=== PATIENT | female | born 1940 | race Caucasian/White ===

== ENCOUNTER 2019-02-22 13:11 | Emergency (ER) | payer MEDICARE, OTHER ==
[~2019-02-22] VITALS: Ht 160 cm; Wt 44.5 kg
--- NOTE | 2019-02-22 14:35 | NUR ---
PT WAS EVALUATED BY DR WARD. PT IS IN ROOM #2B.
[2019-02-22] MEDS ORDERED: TDAP DIPH,PERTUSS,TET VAC/PF 0.5 ML DISP.SYRIN IM ONE (14:37)
[2019-02-22] MEDS: TDAP DIPH,PERTUSS,TET VAC/PF 0.5 ML DISP.SYRIN IM ONE (14:41)
--- NOTE | 2019-02-22 15:08 | NUR ---
PT WAS EVALUATED BY DR WARD. PT WAS D/C'D TO HOME. D/C INSTRUCTIONS GIVEN TO THE PT. DRESSING IS INTACT. NO BLEEDING.
[2019-02-22 15:11] VITALS: BP 129/77
== END 2019-02-22 15:14 | disposition home or self-care (01) ==
LOC: ER 13:11
DX: S61.511A Laceration without foreign body of right wrist, initial encounter (principal); S81.011A Laceration without foreign body, right knee, initial encounter; S50.02XA Contusion of left elbow, initial encounter; S50.01XA Contusion of right elbow, initial encounter; W01.0XXA Fall on same level from slipping, tripping and stumbling without subsequent striking against object, initial encounter; Y93.89 Activity, other specified; Y92.89 Other specified places as the place of occurrence of the external cause; Y99.8 Other external cause status
CPT/HCPCS: 90715; A4217; A4663

== ENCOUNTER 2019-02-24 10:21 | Emergency (ER) | payer MEDICARE, OTHER ==
[~2019-02-24] VITALS: Ht 160 cm; Wt 43.1 kg
--- NOTE | 2019-02-24 10:50 | NUR ---
received pt 78yr femal awake and alert s/p fall down 2 days ago for wound check with ken wound tear with dresing and intact and dry no draning on site dry dr hewitt at bed side examine pt wound on rt hand and rt elbow and rt knee
--- NOTE | 2019-02-24 11:32 | NUR ---
change dressing done by by Erin greenberg and dressing appled keep day and clean
--- NOTE | 2019-02-24 11:54 | NUR ---
Patient discharged to home in stable conditon. Written and verbal after care instructions given. Patient verbalizes understanding of instructions.
== END 2019-02-24 11:56 | disposition home or self-care (01) ==
LOC: ER 10:22
DX: S51.011D Laceration without foreign body of right elbow, subsequent encounter (principal); S61.512D Laceration without foreign body of left wrist, subsequent encounter; S61.511D Laceration without foreign body of right wrist, subsequent encounter; S81.011D Laceration without foreign body, right knee, subsequent encounter; W01.0XXD Fall on same level from slipping, tripping and stumbling without subsequent striking against object, subsequent encounter
CPT/HCPCS: A4663

== ENCOUNTER 2019-02-26 18:30 | Emergency (ER) | payer MEDICARE, OTHER ==
[~2019-02-26] VITALS: Ht 160 cm; Wt 44.5 kg
--- NOTE | 2019-02-26 18:53 | NUR ---
PT IS IN ROOM #2A. DR FELIX EVALUATED THE PT.
[2019-02-26] MEDS ORDERED: NEOMY/BACITRA/POLYMYXIN B OINT UD PACKET TP ONE ×2 (19:15→19:19)
[2019-02-26] MEDS ORDERED: SULFAMETH/TRIMETH 800/160 MG TABLET PO ONE (19:15)
[2019-02-26] MEDS ORDERED: SULFAMETH/TRIMETH 800/160 MG TABLET ONE (19:21)
--- NOTE | 2019-02-26 19:32 | NUR ---
PATIENT ALERT RESPONSIVE DAUGHTER AT THE BEDSIDE WITH PATIENT, DRESSING REMOVED FROM SITE ANDMD WANTS TO WATCH SITES FOR PRESENT REDDNESS AND SWELLING.
--- NOTE | 2019-02-26 19:35 | NUR ---
RIGHT ARM ELEVATED ON PILLOWS.
--- NOTE | 2019-02-26 20:27 | NUR ---
PATIENT WOUNDS CLEANSED AND REDRESSED. TOLERATED WELL. D/C HOME WITH F/U WOUND CARE INSTRUCTIONS DISSCUSSED WITH MD ,PATIENT AND HER DAUGHTER VERBALIZES UNDERSTANDING.
[2019-02-26 20:32] VITALS: BP 127/69
== END 2019-02-26 20:39 | disposition home or self-care (01) ==
LOC: ER 18:31
DX: S51.011D Laceration without foreign body of right elbow, subsequent encounter (principal); S81.011D Laceration without foreign body, right knee, subsequent encounter; W01.0XXD Fall on same level from slipping, tripping and stumbling without subsequent striking against object, subsequent encounter
CPT/HCPCS: A4663

== ENCOUNTER 2019-03-08 16:15 | Inpatient (IN) | payer MEDICARE, OTHER ==
[~2019-03-08] VITALS: Ht 160 cm; Wt 46.9 kg
--- NOTE | 2019-03-08 16:27 | NUR ---
Dr Light at the bedside for MSE.
[2019-03-08] MEDS ORDERED: SULF1TAB48 PO (16:32)
[2019-03-08] MEDS ORDERED: PRAV20TA4 PO (16:35)
[2019-03-08] MEDS ORDERED: TORS20TA3 PO (16:35)
[2019-03-08] MEDS ORDERED: LOSA25TA27 PO (16:35)
[2019-03-08] MEDS ORDERED: diphenhydrAMINE 50 MG/1 ML VIAL IV ONE (16:45)
[2019-03-08] MEDS ORDERED: FAMOTIDINE. 20 MG/2 ML VIAL IV ONE ×2 (16:45→16:49)
[2019-03-08] MEDS ORDERED: methylPREDNISolone SOD SUCC 125 MG/2 ML VIAL IV ONE (16:45)
[2019-03-08] MEDS ORDERED: IV NORMAL SALINE 1000 ML BAG IV ONE (16:45)
[2019-03-08] MEDS ORDERED: diphenhydrAMINE 50 MG/1 ML VIAL ONE (16:49)
[2019-03-08] MEDS ORDERED: methylPREDNISolone SOD SUCC 125 MG/2 ML VIAL ONE (16:49)
[2019-03-08 16:53] LABS: BASOPHILS % (AUTO) 0.2 % (0.0-2.0); EOSINOPHILS # (AUTO) 0.3 K/uL (0.0-0.7); HEMOGLOBIN 9.9 g/dL (10.9-14.3); LYMPHOCYTES # (AUTO) 0.3 K/uL (20.0-40.0); LYMPHOCYTES % (AUTO) 3.4 % (20.5-51.5); MEAN CORPUSCULAR HEMOGLOBIN 32.8 uug (24.7-32.8); MEAN CORPUSCULAR HGB CONC 34 g/dL (32.3-35.6); MEAN CORPUSCULAR VOLUME 96.3 fL (75.5-95.3); MONOCYTES # (AUTO) 0.5 K/uL (2.0-10.0); MONOCYTES % (AUTO) 5.5 % (0.0-11.0); NEUTROPHILS # (AUTO) 8.2 K/uL (1.8-8.9); NEUTROPHILS % (AUTO) 87.9 % (38.5-71.5); PLATELET COUNT (AUTO) 157 K/uL (179-408); RED BLOOD CELL COUNT(AUTO) 3.01 MIL/uL (3.63-4.92); WHITE BLOOD COUNT (AUTO) 9.3 K/uL (3.8-11.8)
[2019-03-08 17:04] LABS: CARBON DIOXIDE 21 mmol/L (21-32); CHLORIDE 100 mmol/L (98-107); CREATININE 1.8 mg/dL (0.6-1.3); GLUCOSE 93 mg/dL (74-106); POTASSIUM 4.5 mmol/L (3.5-5.1); UREA NITROGEN, BLOOD 33 mg/dL (7-18)
[2019-03-08 17:12] LABS: ALANINE AMINOTRANSFERASE 28 U/L (14-59); ALKALINE PHOSPHATASE 51 U/L (50-136); ASPARTATE AMINOTRANSFERASE 24 U/L (15-37); BILIRUBIN,DIRECT 0.1 mg/dL (0.0-0.2); BILIRUBIN,TOTAL 0.3 mg/dL (0.2-1.0); TOTAL PROTEIN, SERUM 6.8 g/dL (6.4-8.2)
--- NOTE | 2019-03-08 17:44 | NUR ---
No changes noted after meds regarding rash.
--- NOTE | 2019-03-08 17:54 | NUR ---
VICTORIANO ESCOTO speak w/ Rocio Barnes for TELE admit.
--- NOTE | 2019-03-08 17:59 | NUR ---
According to Pt belongings taken home by her daughter, and she will bring them back shortly.
[2019-03-08 18:45] VITALS: BP 113/55
[2019-03-08] MEDS ORDERED: Z GUARD REMEDY PASTE 57 GM TUBE TOP PRN (19:15)
[2019-03-08] MEDS ORDERED: MAGNESIUM HYDROXIDE 30 ML LIQUID UDC PO PRN (19:15)
[2019-03-08] MEDS ORDERED: LEVOFLOXACIN 500 MG/D5W 500 MG in PREMIXED 1 EACH IV SCH ×2 (19:15→20:00)
[2019-03-08] MEDS ORDERED: ONDANSETRON 4 MG/2 ML VIAL IV PRN (19:15)
[2019-03-08] MEDS ORDERED: diphenhydrAMINE 50 MG/1 ML VIAL IV PRN (19:15)
--- NOTE | 2019-03-08 19:30 | NUR ---
Received patient awake and alert with family at bedside. No distress noted. No complaints of pain or SOB. Rashes noted to entire body, no complaints of itchiness at this time. Patient is A/Ox4. IV on the left AC is intact and patent. Patient is ambulatory with assist. Safety measures initiated. Bed is low and locked, call light within reach. Patient oriented to room and unit. Will continue with admission process.
--- NOTE | 2019-03-08 19:49 | NUR ---
CLINICAL PHARMACY NOTE:VANCOMYCIN DOSING Request for vancomycin dosing on 78 y/o female 160.02cm 44.45kg for cellulitis Temp 98.5 BUN 33 Scr 1.8 WBC 9.3 also on Levaquin for pneumonia Give vancomycin 750mg ivpb x1 will dose by levels due to decrease renal function. Random vancomycin level ordered for tomorrow afternoon.
[2019-03-08 20:21] VITALS: BP 131/54
[2019-03-08] MEDS ORDERED: VANCOMYCIN IV 750 MG in IV DEXTROSE 5% 250 ML IV ONE (21:00)
[2019-03-08] MEDS: methylPREDNISolone SOD SUCC 40 MG/ML VIAL IV SCH (21:12)
[2019-03-09] MEDS: ACETAMINOPHEN 325 MG TABLET PO PRN ×2 (00:03→06:26)
[2019-03-09 01:20] VITALS: BP 101/42
[2019-03-09 01:41] LABS: *BILIRUBIN,URIN NEGATIVE (NEGATIVE); *BLOOD, URINE NEGATIVE (NEGATIVE); *CLARITY,URINE CLEAR (CLEAR); *COLOR,URINE YELLOW (YELLOW); *KETONES,URINE NEGATIVE (NEGATIVE); PH,URINE 5.5 (5.0-8.0); UGLUCOSE NEGATIVE (NEGATIVE)
[2019-03-09 01:42] LABS: *UROBILINOGEN,URINE 0.2 E.U./dl (NORMAL); LEUKOCYTE ESTERASE ,URINE NEGATIVE (NEGATIVE); NITRITE, URINE NEGATIVE (NEGATIVE)
[2019-03-09] MEDS ORDERED: hydrOXYzine HCL 10 MG TABLET PO PRN (02:30)
--- NOTE | 2019-03-09 03:10 | NUR ---
Patient complaining of itching, called on-call Ceasar March NP with new orders. Patient refusing TELE monitor at this time saying the adhesive is making her more itchy, notify Ceasar March NP. Will continue to monitor.
[2019-03-09] MEDS ORDERED: hydrOXYzine HCL 10 MG TABLET ONE (03:27)
[2019-03-09 04:43] VITALS: BP 116/54
[2019-03-09 06:09] LABS: BASOPHILS % (AUTO) 0.2 % (0.0-2.0); EOSINOPHILS % (AUTO) 0.6 % (0.0-7.0); HEMATOCRIT 27.2 % (31.2-41.9); HEMOGLOBIN 9.3 g/dL (10.9-14.3); LYMPHOCYTES # (AUTO) 0.4 K/uL (20.0-40.0); LYMPHOCYTES % (AUTO) 5.6 % (20.5-51.5); MEAN CORPUSCULAR HEMOGLOBIN 32.7 uug (24.7-32.8); MEAN CORPUSCULAR HGB CONC 34 g/dL (32.3-35.6); MONOCYTES # (AUTO) 0.2 K/uL (2.0-10.0); MONOCYTES % (AUTO) 2.4 % (0.0-11.0); NEUTROPHILS # (AUTO) 6.6 K/uL (1.8-8.9); NEUTROPHILS % (AUTO) 91.2 % (38.5-71.5); PLATELET COUNT (AUTO) 154 K/uL (179-408); RED BLOOD CELL COUNT(AUTO) 2.84 MIL/uL (3.63-4.92); WHITE BLOOD COUNT (AUTO) 7.2 K/uL (3.8-11.8)
--- NOTE | 2019-03-09 06:29 | NUR ---
Patient stated itching is getting a little better. Was seen by airport operations manager, scheduled for an Echo today. Still refusing to put TELE monitor, airport operations manager is aware. No complaints of pain or SOB. Safety measures given. Will endorse to next shift.
[2019-03-09 06:38] LABS: CARBON DIOXIDE 21 mmol/L (21-32); CHLORIDE 108 mmol/L (98-107); CHOLESTEROL 137 mg/dL (<200); CREATININE 1.4 mg/dL (0.6-1.3); GLUCOSE 151 mg/dL (74-106); HDL CHOLESTEROL 50 mg/dL (40-60); MAGNESIUM 2.2 mg/dL (1.8-2.4); PHOSPHOROUS 3.1 mg/dL (2.5-4.9); POTASSIUM 4.9 mmol/L (3.5-5.1); TRIGLYCERIDES 79 MG/DL (30-150); UREA NITROGEN, BLOOD 34 mg/dL (7-18)
[2019-03-09] MEDS ORDERED: PANTOPRAZOLE SODIUM 40 MG TABLET.DR PO SCH (07:00)
[2019-03-09 07:07] LABS: THYROID STIMULATING HORMONE 0.054 mIU/mL (0.358-3.740)
--- NOTE | 2019-03-09 07:30 | NUR ---
PATIENT IS AWAKE ALERT AND ORIENTED DENIES PAIN OR DISCOMFORTS AT THIS TIME MULTIPLE SCABS AND SKIN TEARS PATIENT STATED THAT SHE FELL IN HER HOUSE CAUSING THE SKIN TEARS AND SCABS. ABLE TO AMBULATE TO AND FROM THE BATHROOM WITH SBA.CALL LIGHTS AND PERSONAL BELONGINGS PLACED WITHIN EASY REACH WILL CONTINUE TO OBSERVE.
[2019-03-09] MEDS: methylPREDNISolone SOD SUCC 40 MG/ML VIAL IV SCH (08:50)
[2019-03-09] MEDS ORDERED: HYDR-3641 PO (08:54)
[2019-03-09] MEDS ORDERED: METH4TAB3 PO (08:54)
[2019-03-09] MEDS ORDERED: LORA-114 PO (08:54)
[2019-03-09] MEDS ORDERED: LOSARTAN POTASSIUM 25 MG TABLET PO SCH (09:00)
[2019-03-09] MEDS ORDERED: LORATADINE 10 MG TABLET PO SCH (09:00)
--- NOTE | 2019-03-09 10:00 | NUR ---
PATIENT SEEN AND EXAMINED BY MARJORIE JANE STATED THAT PATIENT WILL BE DISCHARGED HOME TODAY AFTER ECHO
[2019-03-09] MEDS ORDERED: CULTURELLE CAPSULE PO SCH (10:30)
[2019-03-09 11:19] VITALS: BP 108/51
--- NOTE | 2019-03-09 13:15 | NUR ---
ECHO COMPLETED AND PATIENT HAS 40-45 PERCENT EF CALLED AND NOTIFIED MARJORIE.
--- NOTE | 2019-03-09 13:30 | NUR ---
CALL RECEIVED FROM [facility] STATED THAT PATIENT HAS BEEN CLEARED BY THE DOCUMENT PREPARATION SPECIALIST TO GO HOME SHE NEEDS TO FOLLOW UP WITH HER DOCUMENT PREPARATION SPECIALIST AN OUT PATIENT FOR A REPEAT OF ECHO SO AWAITING FOR FINAL DISCHARGE ORDER AND SUMMARY.PATIENTS DAUGHTER IS AT THE BEDSIDE AND AWARE.
--- NOTE | 2019-03-09 13:55 | NUR ---
PATIENT REQUESTED FOR ME TO CALL IN HER MEDICATIONS WHILE WE ARE WAITING FOR MARJORIE TO PLACE A DISCHARGE ORDER SO WHEN I CALLED [facility] THEY STATED THAT THEY ARE CLOSING AT 1400 AND GAVE ME THE NUMBER OF THE [facility] SO I ASKED THE PATIENTS DAUGHTER AND SHE AGREED FOR ME TO CALL IN THE PRESCRIPTION TO THE [facility] ON [address].
--- NOTE | 2019-03-09 14:28 | NUR ---
PATIENT DISCHARGED PICKED UP BY HER DAUGHTER LUISA IN SATISFACTORY CONDITION WITH DISCHARGE INSTRUCTIONS, PRESCRIPTIONS AND ALL OF HER PERSONAL BELONGINGS AND ALSO WAS INSTRUCTED TO FOLLOW UP WITH HER RESTROOMS OR LOUNGES MAID FOR A REPEAT ECHO HER LEVEL IS LOW TODAY AND THEY EXPRESSED UNDERSTANDING.
[2019-03-10] MEDS ORDERED: LEVOFLOXACIN 250MG /D5W 250 MG in PREMIXED 1 EACH IV SCH (20:00)
== END 2019-03-09 14:28 | disposition home or self-care (01) | DRG 813 ==
LOC: ER 16:19 → TELE3 18:08
PROVIDERS: ADMIT Registered Nurse; ATTEND Registered Nurse
DX: D69.0 Allergic purpura (principal); N17.0 Acute kidney failure with tubular necrosis; I50.32 Chronic diastolic (congestive) heart failure; L27.0 Generalized skin eruption due to drugs and medicaments taken internally; T36.8X5A Adverse effect of other systemic antibiotics, initial encounter; Y92.019 Unspecified place in single-family (private) house as the place of occurrence of the external cause; I44.7 Left bundle-branch block, unspecified; Z85.3 Personal history of malignant neoplasm of breast; Z87.891 Personal history of nicotine dependence; L40.50 Arthropathic psoriasis, unspecified; Z92.3 Personal history of irradiation; S51.802D Unspecified open wound of left forearm, subsequent encounter; S51.801D Unspecified open wound of right forearm, subsequent encounter; S81.001D Unspecified open wound, right knee, subsequent encounter; W01.0XXD Fall on same level from slipping, tripping and stumbling without subsequent striking against object, subsequent encounter; Z88.2 Allergy status to sulfonamides; R60.0 Localized edema; I11.0 Hypertensive heart disease with heart failure; E86.0 Dehydration; D69.6 Thrombocytopenia, unspecified; I70.0 Atherosclerosis of aorta; E78.5 Hyperlipidemia, unspecified; M06.9 Rheumatoid arthritis, unspecified
CPT/HCPCS: 36415; 70030-TC; 71045; 83605; 83735; 84100; 84443; 85025; 85730; 93005; 93307; A4663; G0378; J1200; J1956; J2920; J2930; J3370; J3490; J7050; J7060

== ENCOUNTER 2022-09-13 16:02 | Emergency (ER) | payer MEDICARE, OTHER ==
[~2022-09-13] VITALS: Ht 160 cm; Wt 44.5 kg
[~2022-09-13 16:02] MED LIST: HYDR-3641 PO; LORA-114 PO; LOSA25TA27 PO; METH4TAB3 PO
--- NOTE | 2022-09-13 17:02 | NUR ---
Patient seen by physician.
[2022-09-13] MEDS ORDERED: TDAP DIPH,PERTUSS,TET VAC/PF 0.5 ML DISP.SYRIN IM ONE ×2 (17:15→17:22)
[2022-09-13] MEDS ORDERED: LIDOCAINE HCL 1% 20 ML VIAL TP ONE (17:15)
[2022-09-13] MEDS ORDERED: ACETAMINOPHEN ES 500 MG TABLET PO ONE (17:15)
[2022-09-13] MEDS ORDERED: ACETAMINOPHEN ES 500 MG TABLET ONE (17:21)
[2022-09-13] MEDS ORDERED: LIDOCAINE HCL 1% 20 ML VIAL ONE (17:21)
[2022-09-13] MEDS ORDERED: NEOMY/BACITRA/POLYMYXIN B OINT UD PACKET TP ONE ×2 (18:10→18:15)
--- NOTE | 2022-09-13 18:28 | NUR ---
DCD instructions given to pt. who verbalized understanding. pt. left room ambulatory steady gait and walk to the outside right front area where her car was parked.
--- NOTE | 2022-09-13 18:30 | NUR ---
Wound care per order, triple antibiotic ointment to suture line, covered with gauze 4x4 and Coban wrap.
== END 2022-09-13 18:32 | disposition home or self-care (01) ==
LOC: ER 16:04
DX: S81.011A Laceration without foreign body, right knee, initial encounter (principal); I50.9 Heart failure, unspecified; E78.5 Hyperlipidemia, unspecified; Z88.2 Allergy status to sulfonamides; Z91.048 Other nonmedicinal substance allergy status; Z79.899 Other long term (current) drug therapy; W01.0XXA Fall on same level from slipping, tripping and stumbling without subsequent striking against object, initial encounter; Y93.89 Activity, other specified; Y92.89 Other specified places as the place of occurrence of the external cause; Y99.8 Other external cause status
CPT/HCPCS: 99283; 73564; 90715; 90471; 12005; J3490; A4663; A9150

== ENCOUNTER 2022-09-15 09:07 | Emergency (ER) | payer MEDICARE, OTHER ==
[~2022-09-15] VITALS: Ht 160 cm; Wt 44.5 kg
--- NOTE | 2022-09-15 09:45 | NUR ---
Pt seen by MD for bedside eval. Safety measures in place. Will continue to monitor.
--- NOTE | 2022-09-15 09:45 | NUR ---
Cleaned and wrapped pt's wound. Pt tolerated well.
--- NOTE | 2022-09-15 09:49 | NUR ---
Patient discharged to home in stable condition. Verbal after care instructions given. Gave patient extra gauze, coband, and GALA wrap. Patient verbalizes understanding of instructions. Stressed follow up or return to ER for worsening s/s.
[2022-09-15 09:51] VITALS: BP 125/60
== END 2022-09-15 09:51 | disposition home or self-care (01) ==
LOC: ER 09:07
DX: S81.011D Laceration without foreign body, right knee, subsequent encounter (principal); I50.9 Heart failure, unspecified; E78.5 Hyperlipidemia, unspecified; Z88.2 Allergy status to sulfonamides; Z88.8 Allergy status to other drugs, medicaments and biological substances; Z79.899 Other long term (current) drug therapy; X58.XXXD Exposure to other specified factors, subsequent encounter
CPT/HCPCS: A4663

== ENCOUNTER 2022-09-24 08:07 | Emergency (ER) | payer MEDICARE, OTHER ==
[~2022-09-24] VITALS: Ht 160 cm; Wt 45.4 kg
--- NOTE | 2022-09-24 08:09 | NUR ---
Seen and examined by MD Jacob
[2022-09-24] MEDS ORDERED: CEPH500C2 PO (08:21)
[2022-09-24 08:32] VITALS: BP 120/71
--- NOTE | 2022-09-24 08:32 | NUR ---
Patient discharged to home in stable condition. Written and verbal after care instructions given. Patient verbalizes understanding of instructions. Stressed follow up or return to ER for worsening s/s.
== END 2022-09-24 08:32 | disposition home or self-care (01) ==
LOC: ER 08:07
DX: S81.011D Laceration without foreign body, right knee, subsequent encounter (principal); I50.9 Heart failure, unspecified; E78.5 Hyperlipidemia, unspecified; Z88.2 Allergy status to sulfonamides; Z91.048 Other nonmedicinal substance allergy status; Z79.899 Other long term (current) drug therapy; X58.XXXD Exposure to other specified factors, subsequent encounter
CPT/HCPCS: A4663

== ENCOUNTER 2022-09-28 11:55 | Emergency (ER) | payer MEDICARE, OTHER ==
[~2022-09-28] VITALS: Ht 160 cm; Wt 45.4 kg
[~2022-09-28 11:55] MED LIST changes: +CEPH500C2 PO
--- NOTE | 2022-09-28 12:20 | NUR ---
Patient discharged to home by Dr Landry in stable condition with slow steady gait. Written and verbal after care instructions given. Patient verbalized understanding and compliance of instructions. Stressed follow up with primary doctor or return to ER for worsening s/s.
[2022-09-28 12:22] VITALS: BP 111/56
== END 2022-09-28 12:22 | disposition home or self-care (01) ==
LOC: ER 11:55
DX: S81.011D Laceration without foreign body, right knee, subsequent encounter (principal); I50.9 Heart failure, unspecified; E78.00 Pure hypercholesterolemia, unspecified; Z88.2 Allergy status to sulfonamides; Z91.048 Other nonmedicinal substance allergy status; Z79.899 Other long term (current) drug therapy; W10.9XXD Fall (on) (from) unspecified stairs and steps, subsequent encounter
CPT/HCPCS: A4663

== ENCOUNTER 2023-03-02 10:09 | Inpatient (IN) | payer MEDICARE, OTHER ==
[~2023-03-02] VITALS: Ht 160 cm; Wt 49.4 kg
[2023-03-02] MEDS ORDERED: VANCOMYCIN 1G/D5W 200 ML PIGGYBACK IV ONE (10:30)
[2023-03-02] MEDS ORDERED: IV NORMAL SALINE 1000 ML BAG IV ONE (10:30)
[2023-03-02] MEDS ORDERED: PIPERACILLIN SODIUM/TAZOBACTAM 3.375 G in IV DEXTROSE 5% 50 ML IV ONE (10:30)
[2023-03-02] MEDS ORDERED: AMOX500C2 PO (10:51)
[2023-03-02] MEDS ORDERED: PRAV20TA4 PO (10:51)
[2023-03-02] MEDS ORDERED: PIPERACILLIN/TAZOBACTAM/D5W 50 ML IV ONE (11:16)
[2023-03-02] MEDS ORDERED: VANCOMYCIN IV 200 ML ONE (11:16)
[2023-03-02 12:47] LABS: *BILIRUBIN,URIN NEGATIVE (NEGATIVE); *BLOOD, URINE NEGATIVE (NEGATIVE); *CLARITY,URINE CLEAR (CLEAR); *COLOR,URINE YELLOW (YELLOW); *KETONES,URINE NEGATIVE (NEGATIVE); *PROTEIN,URINE NEGATIVE (NEGATIVE); *UROBILINOGEN,URINE 0.2 E.U./dl (NORMAL); LEUKOCYTE ESTERASE ,URINE NEGATIVE (NEGATIVE); NITRITE, URINE NEGATIVE (NEGATIVE); PH,URINE 5.5 (5.0-8.0); UGLUCOSE NEGATIVE (NEGATIVE)
[2023-03-02 12:48] LABS: CALCIUM 9.3 mg/dL (8.5-10.1); CARBON DIOXIDE 22 mmol/L (21-32); CHLORIDE 107 mmol/L (98-107); GLUCOSE 96 mg/dL (74-106); POTASSIUM 3.7 mmol/L (3.5-5.1); SODIUM SERUM 142 mmol/L (136-145); UREA NITROGEN, BLOOD 28 mg/dL (7-18)
[2023-03-02 12:57] LABS: ALANINE AMINOTRANSFERASE 14 U/L (14-59); ALBUMIN 2.6 g/dL (3.4-5.0); ALKALINE PHOSPHATASE 59 U/L (50-136); ASPARTATE AMINOTRANSFERASE 8 U/L (15-37); BILIRUBIN,DIRECT 0.1 mg/dL (0.0-0.2); BILIRUBIN,TOTAL 0.2 mg/dL (0.2-1.0); TOTAL PROTEIN, SERUM 6.2 g/dL (6.4-8.2)
[2023-03-02 13:00] LABS: BASOPHILS % (AUTO) 0.4 % (0.0-2.0); EOSINOPHILS # (AUTO) 0.1 K/uL (0.0-0.7); EOSINOPHILS % (AUTO) 0.9 % (0.0-7.0); HEMATOCRIT 26.1 % (31.2-41.9); HEMOGLOBIN 8.3 g/dL (10.9-14.3); LYMPHOCYTES # (AUTO) 1.4 K/uL (0.8-4.8); LYMPHOCYTES % (AUTO) 13.6 % (20.5-51.5); MEAN CORPUSCULAR HEMOGLOBIN 31.4 uug (24.7-32.8); MEAN CORPUSCULAR HGB CONC 32 g/dL (32.3-35.6); MEAN CORPUSCULAR VOLUME 99.1 fL (75.5-95.3); MONOCYTES # (AUTO) 0.8 K/uL (0.1-1.30); MONOCYTES % (AUTO) 7.6 % (0.0-11.0); NEUTROPHILS # (AUTO) 8.1 K/uL (1.8-8.9); NEUTROPHILS % (AUTO) 77.5 % (38.5-71.5); PLATELET COUNT (AUTO) 292 K/uL (179-408); RED BLOOD CELL COUNT(AUTO) 2.63 MIL/uL (3.63-4.92); RED CELL DISTRIBUTION WIDTH 14.5 % (12.3-17.7); WHITE BLOOD COUNT (AUTO) 10.4 K/uL (3.8-11.8)
[2023-03-02 13:06] LABS: DIFFERENTIAL COMMENT N
[2023-03-02 14:30] VITALS: BP 154/80; TEMP 98.9; O2SAT 99
[2023-03-02] MEDS ORDERED: MORPHINE SULFATE 2 MG/1 ML DISP.SYRIN IV PRN (15:00)
[2023-03-02] MEDS ORDERED: ONDANSETRON 4 MG/2 ML VIAL IV PRN (15:00)
[2023-03-02] MEDS ORDERED: MAGNESIUM HYDROXIDE 30 ML LIQUID UDC PO PRN (15:00)
[2023-03-02] MEDS ORDERED: LOSA25TA27 PO (15:48)
[2023-03-02] MEDS ORDERED: MULT-1119 PO (15:48)
[2023-03-02] MEDS: ACETAMINOPHEN 325 MG TABLET PO PRN ×2 (17:22→23:20)
[2023-03-02 20:35] LABS: *OCCULT BLOOD STOOL NEGATIVE (NEGATIVE)
[2023-03-02 20:40] VITALS: BP 126/53; TEMP 99.1; O2SAT 96
[2023-03-02] MEDS: METOPROLOL TARTRATE 25 MG TABLET PO SCH (20:54)
[2023-03-02] MEDS ORDERED: PIPERACILLIN SODIUM/TAZOBACTAM 3.375 G in IV DEXTROSE 5% 100 ML IV SCH (21:00)
[2023-03-02] MEDS ORDERED: CEFEPIME HCL 1 G VIAL ONE ×2 (21:52)
[2023-03-02] MEDS ORDERED: PIPERACILLIN SODIUM/TAZOBACTAM 3.375 G in IV DEXTROSE 5% 50 ML IV SCH (22:00)
[2023-03-02] MEDS: CEFEPIME HCL 1 G in IV DEXTROSE 5% 50 ML IV SCH (22:11)
[2023-03-03 04:10] VITALS: BP 120/60; TEMP 98.4; O2SAT 96
[2023-03-03] MEDS: CEFEPIME HCL 1 G in IV DEXTROSE 5% 50 ML IV SCH ×2 (06:03→18:11)
[2023-03-03] MEDS: PANTOPRAZOLE SODIUM 40 MG TABLET.DR PO SCH (06:05)
[2023-03-03] MEDS: ACETAMINOPHEN 325 MG TABLET PO PRN ×2 (07:00→20:39)
[2023-03-03 07:20] LABS: BASOPHILS # (AUTO) 0.1 K/UL (0.0-0.2); BASOPHILS % (AUTO) 1.2 % (0.0-2.0); EOSINOPHILS # (AUTO) 0.3 K/uL (0.0-0.7); HEMATOCRIT 21.9 % (31.2-41.9); HEMOGLOBIN 7.6 g/dL (10.9-14.3); LYMPHOCYTES # (AUTO) 1.6 K/uL (0.8-4.8); LYMPHOCYTES % (AUTO) 22.2 % (20.5-51.5); MEAN CORPUSCULAR HEMOGLOBIN 32.5 uug (24.7-32.8); MEAN CORPUSCULAR HGB CONC 35 g/dL (32.3-35.6); MEAN CORPUSCULAR VOLUME 94.1 fL (75.5-95.3); MONOCYTES # (AUTO) 0.7 K/uL (0.1-1.30); MONOCYTES % (AUTO) 9.5 % (0.0-11.0); NEUTROPHILS # (AUTO) 4.7 K/uL (1.8-8.9); NEUTROPHILS % (AUTO) 63.1 % (38.5-71.5); PLATELET COUNT (AUTO) 322 K/uL (179-408); RED CELL DISTRIBUTION WIDTH 13.8 % (12.3-17.7); WHITE BLOOD COUNT (AUTO) 7.4 K/uL (3.8-11.8)
[2023-03-03 07:28] LABS: DIFFERENTIAL COMMENT 1; RED BLOOD CELL COUNT(AUTO) 2.33 MIL/uL (3.63-4.92)
[2023-03-03 07:45] LABS: THYROID STIMULATING HORMONE 0.112 mIU/mL (0.358-3.740)
[2023-03-03 07:46] LABS: IRON, SERUM 11 ug/dL (50-175)
[2023-03-03 07:54] LABS: ALANINE AMINOTRANSFERASE 14 U/L (14-59); ALBUMIN 2.3 g/dL (3.4-5.0); ALKALINE PHOSPHATASE 56 U/L (50-136); ASPARTATE AMINOTRANSFERASE 14 U/L (15-37); BILIRUBIN,TOTAL 0.2 mg/dL (0.2-1.0); CALCIUM 8.7 mg/dL (8.5-10.1); CARBON DIOXIDE 24 mmol/L (21-32); CHLORIDE 111 mmol/L (98-107); GLUCOSE 81 mg/dL (74-106); MAGNESIUM 2.7 mg/dL (1.8-2.4); PHOSPHOROUS 2.8 mg/dL (2.5-4.9); POTASSIUM 3.7 mmol/L (3.5-5.1); SODIUM SERUM 144 mmol/L (136-145); TOTAL PROTEIN, SERUM 5.7 g/dL (6.4-8.2); UREA NITROGEN, BLOOD 23 mg/dL (7-18); VANCOMYCIN,RANDOM 10.9 ug/mL (20.0-30.0)
[2023-03-03 08:00] VITALS: BP 125/64; TEMP 98.6; O2SAT 93
[2023-03-03] MEDS: MULTIVIT, IRON, MIN NO. 8, FA TABLET PO SCH (08:22)
[2023-03-03] MEDS: ASCORBIC ACID 500 MG TABLET PO SCH (08:22)
[2023-03-03] MEDS: ZINC SULFATE 220 MG CAPSULE PO SCH (08:23)
[2023-03-03] MEDS: METOPROLOL TARTRATE 25 MG TABLET PO SCH ×2 (08:23→20:38)
[2023-03-03 08:38] LABS: CHOLESTEROL 113 mg/dL (<200); HDL CHOLESTEROL 53 mg/dL (40-60); TRIGLYCERIDES 63 MG/DL (30-150)
[2023-03-03 12:00] VITALS: BP 106/51; TEMP 98.1; O2SAT 97
[2023-03-03] MEDS ORDERED: VANCOMYCIN IV 500 MG in IV DEXTROSE 5% 100 ML IV SCH (14:00)
[2023-03-03 16:53] VITALS: BP 122/53; TEMP 97.8; O2SAT 97
[2023-03-03 20:30] VITALS: TEMP 100.1; O2SAT 94
[2023-03-03 20:39] VITALS: BP 130/66; TEMP 99.3; O2SAT 96
[2023-03-03] MEDS ORDERED: LINEZOLID 600 MG TABLET PO SCH (21:00)
[2023-03-03] MEDS ORDERED: LINEZOLID 600 MG/300 ML PIGGYBACK IV ONE (22:14)
[2023-03-03] MEDS: LINEZOLID IV 600 MG in PREMIXED 1 EACH IV SCH (22:46)
[2023-03-04 04:00] VITALS: BP 124/60; TEMP 98.4; O2SAT 94
[2023-03-04] MEDS: CEFEPIME HCL 1 G in IV DEXTROSE 5% 50 ML IV SCH ×2 (06:12→17:19)
[2023-03-04] MEDS: PANTOPRAZOLE SODIUM 40 MG TABLET.DR PO SCH (06:16)
[2023-03-04] MEDS: ACETAMINOPHEN 325 MG TABLET PO PRN ×2 (08:34→21:21)
[2023-03-04] MEDS: ZINC SULFATE 220 MG CAPSULE PO SCH (08:35)
[2023-03-04] MEDS: ASCORBIC ACID 500 MG TABLET PO SCH (08:35)
[2023-03-04] MEDS: MULTIVIT, IRON, MIN NO. 8, FA TABLET PO SCH (08:35)
[2023-03-04] MEDS: LINEZOLID IV 600 MG in PREMIXED 1 EACH IV SCH ×2 (08:36→20:50)
[2023-03-04] MEDS: METOPROLOL TARTRATE 25 MG TABLET PO SCH ×2 (08:36→20:57)
[2023-03-04] MEDS: ENSURE ENLIVE (VAN) 240 ML LIQUID PO SCH (08:42)
[2023-03-04] MEDS: BACITRACIN ZINC OINT 15 GM TUBE TOP SCH (08:45)
[2023-03-04] MEDS: SODIUM HYPOCHLORITE 0.125% (QUARTER STRENGTH) 473 ML BOTTLE TP SCH (10:24)
[2023-03-04 10:55] VITALS: BP 112/52; TEMP 98.4; O2SAT 96
[2023-03-04 15:21] VITALS: BP 108/50; TEMP 98.4; O2SAT 96
[2023-03-04] MEDS: PROTEIN SUPPLEMENT (PROSTAT) 30 ML LIQUID PO SCH (17:18)
[2023-03-04 20:00] VITALS: BP 140/65; TEMP 98.5; O2SAT 94
[2023-03-05 06:00] VITALS: BP 122/56; TEMP 98.1; O2SAT 95
[2023-03-05] MEDS: CEFEPIME HCL 1 G in IV DEXTROSE 5% 50 ML IV SCH ×2 (06:07→17:33)
[2023-03-05] MEDS: PANTOPRAZOLE SODIUM 40 MG TABLET.DR PO SCH (06:34)
[2023-03-05 07:29] LABS: BASOPHILS # (AUTO) 0.1 K/UL (0.0-0.2); BASOPHILS % (AUTO) 0.6 % (0.0-2.0); EOSINOPHILS # (AUTO) 0.5 K/uL (0.0-0.7); EOSINOPHILS % (AUTO) 5.8 % (0.0-7.0); HEMATOCRIT 24.4 % (31.2-41.9); HEMOGLOBIN 8.4 g/dL (10.9-14.3); LYMPHOCYTES # (AUTO) 1.9 K/uL (0.8-4.8); LYMPHOCYTES % (AUTO) 21.2 % (20.5-51.5); MEAN CORPUSCULAR HEMOGLOBIN 32.4 uug (24.7-32.8); MEAN CORPUSCULAR HGB CONC 34 g/dL (32.3-35.6); MONOCYTES # (AUTO) 0.6 K/uL (0.1-1.30); MONOCYTES % (AUTO) 6.8 % (0.0-11.0); NEUTROPHILS # (AUTO) 5.9 K/uL (1.8-8.9); NEUTROPHILS % (AUTO) 65.6 % (38.5-71.5); PLATELET COUNT (AUTO) 385 K/uL (179-408); RED CELL DISTRIBUTION WIDTH 14.1 % (12.3-17.7); WHITE BLOOD COUNT (AUTO) 8.9 K/uL (3.8-11.8)
[2023-03-05 07:34] LABS: CALCIUM 8.2 mg/dL (8.5-10.1); CARBON DIOXIDE 22 mmol/L (21-32); CHLORIDE 110 mmol/L (98-107); GLUCOSE 86 mg/dL (74-106); POTASSIUM 4.2 mmol/L (3.5-5.1); SODIUM SERUM 139 mmol/L (136-145); UREA NITROGEN, BLOOD 16 mg/dL (7-18)
[2023-03-05 07:39] LABS: DIFFERENTIAL COMMENT 1
[2023-03-05] MEDS: ASCORBIC ACID 500 MG TABLET PO SCH (08:25)
[2023-03-05] MEDS: MULTIVIT, IRON, MIN NO. 8, FA TABLET PO SCH (08:25)
[2023-03-05] MEDS: ACETAMINOPHEN 325 MG TABLET PO PRN ×2 (08:25→16:03)
[2023-03-05] MEDS: ZINC SULFATE 220 MG CAPSULE PO SCH (08:25)
[2023-03-05] MEDS: PROTEIN SUPPLEMENT (PROSTAT) 30 ML LIQUID PO SCH ×3 (08:25→17:33)
[2023-03-05] MEDS: ENSURE ENLIVE (VAN) 240 ML LIQUID PO SCH (08:26)
[2023-03-05] MEDS: LINEZOLID IV 600 MG in PREMIXED 1 EACH IV SCH (08:28)
[2023-03-05] MEDS: BACITRACIN ZINC OINT 15 GM TUBE TOP SCH (08:31)
[2023-03-05] MEDS: METOPROLOL TARTRATE 25 MG TABLET PO SCH ×2 (08:31→20:39)
[2023-03-05] MEDS: SODIUM HYPOCHLORITE 0.125% (QUARTER STRENGTH) 473 ML BOTTLE TP SCH (08:31)
[2023-03-05 11:13] VITALS: BP 109/51; TEMP 98.3; O2SAT 97
[2023-03-05 16:19] VITALS: BP 124/61; TEMP 98.6; O2SAT 97
[2023-03-05 20:00] VITALS: BP 130/64; TEMP 98.9; O2SAT 96
[2023-03-05] MEDS: LINEZOLID 600 MG TABLET PO SCH (20:40)
[2023-03-06] MEDS: ACETAMINOPHEN 325 MG TABLET PO PRN ×2 (00:26→11:53)
[2023-03-06 04:02] VITALS: BP 120/59; TEMP 98.4; O2SAT 95
[2023-03-06] MEDS: CEFEPIME HCL 1 G in IV DEXTROSE 5% 50 ML IV SCH (05:34)
[2023-03-06] MEDS: PANTOPRAZOLE SODIUM 40 MG TABLET.DR PO SCH (06:32)
[2023-03-06 08:12] VITALS: BP 136/68; TEMP 98.7; O2SAT 96
[2023-03-06] MEDS: PROTEIN SUPPLEMENT (PROSTAT) 30 ML LIQUID PO SCH ×2 (09:03→12:15)
[2023-03-06] MEDS: ZINC SULFATE 220 MG CAPSULE PO SCH (09:04)
[2023-03-06] MEDS: ASCORBIC ACID 500 MG TABLET PO SCH (09:04)
[2023-03-06] MEDS: MULTIVIT, IRON, MIN NO. 8, FA TABLET PO SCH (09:04)
[2023-03-06] MEDS: METOPROLOL TARTRATE 25 MG TABLET PO SCH (09:04)
[2023-03-06] MEDS: ENSURE ENLIVE (VAN) 240 ML LIQUID PO SCH (09:04)
[2023-03-06] MEDS: SODIUM HYPOCHLORITE 0.125% (QUARTER STRENGTH) 473 ML BOTTLE TP SCH (09:05)
[2023-03-06] MEDS: BACITRACIN ZINC OINT 15 GM TUBE TOP SCH (09:06)
[2023-03-06] MEDS: LINEZOLID 600 MG TABLET PO SCH (09:09)
[2023-03-06] MEDS ORDERED: SOD FERRIC GLUC COMPLX/SUCROSE 125 MG in IV NORMAL SALINE 100 ML IV ONE (09:17)
[2023-03-06] MEDS ORDERED: ACIDOPHILUS/BULGARICUS CHEW TAB PO SCH (09:30)
[2023-03-06] MEDS ORDERED: GENTAMICIN SULFATE 0.1% CREAM 15 GM TUBE TOP SCH (10:30)
[2023-03-06 11:32] VITALS: BP 124/60; TEMP 98.1; O2SAT 96
[2023-03-06] MEDS ORDERED: PANT40TA49 PO (15:49)
[2023-03-06] MEDS ORDERED: METO25TA6 PO (15:49)
[2023-03-06] MEDS ORDERED: CEFE1PIG3 IV (15:49)
[2023-03-06] MEDS ORDERED: ASCO500T21 PO (15:49)
[2023-03-06] MEDS ORDERED: ZINC1CAP3 PO (15:49)
[2023-03-06] MEDS ORDERED: MAGN400O6 PO (15:49)
[2023-03-06] MEDS ORDERED: SODI473S8 TP (15:49)
[2023-03-06] MEDS ORDERED: GENTAMICIN SULFATE 0.1% TOP (15:49)
[2023-03-06] MEDS ORDERED: ACET325T53 PO (15:49)
[2023-03-06] MEDS ORDERED: ACID1TAB4 PO (15:49)
[2023-03-06] MEDS ORDERED: PROT30LI PO (15:49)
[2023-03-06 15:59] VITALS: BP 132/63; TEMP 98.6; O2SAT 95
== END 2023-03-06 17:15 | DRG 863 ==
LOC: ER 10:09 → MEDSURG3 14:02
PROVIDERS: ADMIT Internal Medicine; ATTEND Internal Medicine
DX: T81.41XA Infection following a procedure, superficial incisional surgical site, initial encounter (principal); L03.115 Cellulitis of right lower limb; E44.0 Moderate protein-calorie malnutrition; D68.59 Other primary thrombophilia; I50.40 Unspecified combined systolic (congestive) and diastolic (congestive) heart failure; Z68.1 Body mass index [BMI] 19.9 or less, adult; B96.5 Pseudomonas (aeruginosa) (mallei) (pseudomallei) as the cause of diseases classified elsewhere; B95.61 Methicillin susceptible Staphylococcus aureus infection as the cause of diseases classified elsewhere; R60.0 Localized edema; C44.90 Unspecified malignant neoplasm of skin, unspecified; Z74.09 Other reduced mobility; D53.9 Nutritional anemia, unspecified; M06.9 Rheumatoid arthritis, unspecified; L40.50 Arthropathic psoriasis, unspecified; Z85.3 Personal history of malignant neoplasm of breast; E04.2 Nontoxic multinodular goiter; E78.5 Hyperlipidemia, unspecified; I44.7 Left bundle-branch block, unspecified; Z79.899 Other long term (current) drug therapy; I11.0 Hypertensive heart disease with heart failure; D50.9 Iron deficiency anemia, unspecified; Z87.891 Personal history of nicotine dependence; Z88.2 Allergy status to sulfonamides
CPT/HCPCS: 36415; 71045; 73590; 82378; 83550; 83605; 83735; 84100; 84443; 84484; 85025; 85730; 87040; 93005; A4663; A6209; G0378; J0692; J2020; J2270; J2543; J2916; J3370; J3590; J7040

== ENCOUNTER 2023-03-15 19:32 | Inpatient (IN) | payer MEDICARE, OTHER ==
[~2023-03-15] VITALS: Ht 165.1 cm; Wt 54.4 kg
[~2023-03-15 19:32] MED LIST changes: +ACET325T53 PO; +ACID1TAB4 PO; +ASCO500T21 PO; +CEFE1PIG3 IV; -CEPH500C2 PO; +GENTAMICIN SULFATE 0.1% TOP; -HYDR-3641 PO; -LORA-114 PO; -LOSA25TA27 PO; +MAGN400O6 PO; -METH4TAB3 PO; +METO25TA6 PO; +MULT-1119 PO; +PANT40TA49 PO; +PROT30LI PO; +SODI473S8 TP; +ZINC1CAP3 PO
[2023-03-15 21:13] LABS: BASOPHILS # (AUTO) 0.3 K/UL (0.0-0.2); DIFFERENTIAL COMMENT 0; EOSINOPHILS # (AUTO) 0.4 K/uL (0.0-0.7); EOSINOPHILS % (AUTO) 4.8 % (0.0-7.0); HEMATOCRIT 32.4 % (31.2-41.9); HEMOGLOBIN 10.5 g/dL (10.9-14.3); LYMPHOCYTES # (AUTO) 1.7 K/uL (0.8-4.8); MEAN CORPUSCULAR HEMOGLOBIN 30.9 uug (24.7-32.8); MEAN CORPUSCULAR HGB CONC 32 g/dL (32.3-35.6); MEAN CORPUSCULAR VOLUME 95.3 fL (75.5-95.3); MONOCYTES # (AUTO) 0.4 K/uL (0.1-1.30); MONOCYTES % (AUTO) 5.6 % (0.0-11.0); NEUTROPHILS % (AUTO) 63.6 % (38.5-71.5); PLATELET COUNT (AUTO) 376 K/uL (179-408); RED BLOOD CELL COUNT(AUTO) 3.41 MIL/uL (3.63-4.92); RED CELL DISTRIBUTION WIDTH 15.2 % (12.3-17.7); WHITE BLOOD COUNT (AUTO) 7.9 K/uL (3.8-11.8)
[2023-03-15 21:34] LABS: THYROID STIMULATING HORMONE 0.135 mIU/mL (0.358-3.740)
[2023-03-15] MEDS ORDERED: ACID1TAB4 PO (21:37)
[2023-03-15] MEDS ORDERED: NA P133E RC (21:37)
[2023-03-15] MEDS ORDERED: ARGI1POW17 PO (21:37)
[2023-03-15] MEDS ORDERED: MELA3CAP2 PO (21:37)
[2023-03-15] MEDS ORDERED: MIRT7.5T10 PO (21:37)
[2023-03-15] MEDS ORDERED: AMIN30LI27 PO (21:37)
[2023-03-15] MEDS ORDERED: PANT40TA49 PO (21:37)
[2023-03-15] MEDS ORDERED: BISA10SU61 RC (21:37)
[2023-03-15] MEDS ORDERED: CEFEPIME HCL 1 G VIAL ONE ×2 (21:41→23:19)
[2023-03-15] MEDS ORDERED: LINEZOLID 600 MG/300 ML PIGGYBACK IV ONE (21:42)
[2023-03-15 21:44] LABS: ALANINE AMINOTRANSFERASE 19 U/L (14-59); ALBUMIN 3.2 g/dL (3.4-5.0); ALKALINE PHOSPHATASE 67 U/L (50-136); ASPARTATE AMINOTRANSFERASE 14 U/L (15-37); BILIRUBIN,DIRECT 0.1 mg/dL (0.0-0.2); BILIRUBIN,TOTAL 0.2 mg/dL (0.2-1.0)
[2023-03-15] MEDS ORDERED: CEFEPIME HCL 1 G in IV DEXTROSE 5% 50 ML IV ONE (21:45)
[2023-03-15] MEDS ORDERED: LINEZOLID IV 600 MG in PREMIXED 1 EACH IV ONE (21:45)
[2023-03-15 22:10] LABS: CARBON DIOXIDE 26 mmol/L (21-32); CHLORIDE 106 mmol/L (98-107); CREATININE 0.7 mg/dL (0.6-1.3); GLUCOSE 105 mg/dL (74-106); POTASSIUM 4.2 mmol/L (3.5-5.1); SODIUM SERUM 139 mmol/L (136-145); UREA NITROGEN, BLOOD 52 mg/dL (7-18)
[2023-03-16] MEDS ORDERED: REMEDY ESSENTIAL ZINC PASTE 113 GM TP PRN (01:30)
[2023-03-16] MEDS ORDERED: MAGNESIUM HYDROXIDE 30 ML LIQUID UDC PO PRN ×2 (01:30→16:00)
[2023-03-16] MEDS ORDERED: ONDANSETRON 4 MG/2 ML VIAL IV PRN (01:30)
[2023-03-16 01:39] LABS: *BILIRUBIN,URIN NEGATIVE (NEGATIVE); *BLOOD, URINE NEGATIVE (NEGATIVE); *CLARITY,URINE CLEAR (CLEAR); *COLOR,URINE YELLOW (YELLOW); *KETONES,URINE NEGATIVE (NEGATIVE); *PROTEIN,URINE NEGATIVE (NEGATIVE); *UROBILINOGEN,URINE 0.2 E.U./dl (NORMAL); LEUKOCYTE ESTERASE ,URINE NEGATIVE (NEGATIVE); NITRITE, URINE NEGATIVE (NEGATIVE); UGLUCOSE NEGATIVE (NEGATIVE)
[2023-03-16 04:55] VITALS: BP 139/63; TEMP 97.6; O2SAT 96
[2023-03-16] MEDS ORDERED: CEFEPIME HCL 1 G in IV DEXTROSE 5% 50 ML IV SCH (06:00)
[2023-03-16] MEDS ORDERED: CEFTRIAXONE /D5W 50ML IVPB **ER PYXIS IV ONE (06:24)
[2023-03-16] MEDS ORDERED: CEFEPIME HCL 1 G VIAL ONE (06:27)
[2023-03-16] MEDS ORDERED: GENTAMICIN OINT TP (07:54)
[2023-03-16] MEDS ORDERED: SODI473S8 MC (07:54)
[2023-03-16] MEDS ORDERED: HYDR-4174 TP (07:54)
[2023-03-16] MEDS ORDERED: LINEZOLID IV 600 MG in PREMIXED 1 EACH IV ONE (09:00)
[2023-03-16] MEDS ORDERED: SWABABLE VALVE TRANSFER SET EA MC ONE (11:23)
[2023-03-16] MEDS ORDERED: IOHEXOL 300MG/ML 100 ML INFUS..BTL ONE (11:23)
[2023-03-16] MEDS ORDERED: IV NORMAL SALINE 250 ML IV ONE (11:24)
[2023-03-16 11:36] VITALS: BP 131/75; TEMP 97.7; O2SAT 98
[2023-03-16] MEDS: ACETAMINOPHEN 325 MG TABLET PO PRN (13:58)
[2023-03-16 14:29] LABS: BASOPHILS # (AUTO) 0.1 K/UL (0.0-0.2); BASOPHILS % (AUTO) 1.2 % (0.0-2.0); EOSINOPHILS # (AUTO) 0.3 K/uL (0.0-0.7); HEMATOCRIT 31.2 % (31.2-41.9); HEMOGLOBIN 10.3 g/dL (10.9-14.3); LYMPHOCYTES # (AUTO) 1.8 K/uL (0.8-4.8); LYMPHOCYTES % (AUTO) 22.3 % (20.5-51.5); MEAN CORPUSCULAR HGB CONC 33 g/dL (32.3-35.6); MEAN CORPUSCULAR VOLUME 94.2 fL (75.5-95.3); MONOCYTES # (AUTO) 0.8 K/uL (0.1-1.30); MONOCYTES % (AUTO) 9.3 % (0.0-11.0); NEUTROPHILS # (AUTO) 5.3 K/uL (1.8-8.9); NEUTROPHILS % (AUTO) 64.2 % (38.5-71.5); PLATELET COUNT (AUTO) 363 K/uL (179-408); RED BLOOD CELL COUNT(AUTO) 3.32 MIL/uL (3.63-4.92); RED CELL DISTRIBUTION WIDTH 14.9 % (12.3-17.7); WHITE BLOOD COUNT (AUTO) 8.2 K/uL (3.8-11.8)
[2023-03-16 14:56] LABS: CALCIUM 12.3 mg/dL (8.5-10.1); CARBON DIOXIDE 23 mmol/L (21-32); CHLORIDE 103 mmol/L (98-107); CREATININE 0.8 mg/dL (0.6-1.3); DIFFERENTIAL COMMENT 1; GLUCOSE 101 mg/dL (74-106); POTASSIUM 3.9 mmol/L (3.5-5.1); SODIUM SERUM 138 mmol/L (136-145); UREA NITROGEN, BLOOD 32 mg/dL (7-18)
[2023-03-16 15:17] LABS: ALANINE AMINOTRANSFERASE 17 U/L (14-59); ALKALINE PHOSPHATASE 62 U/L (50-136); ASPARTATE AMINOTRANSFERASE 7 U/L (15-37); BILIRUBIN,TOTAL 0.2 mg/dL (0.2-1.0); MAGNESIUM 1.8 mg/dL (1.8-2.4); PHOSPHOROUS 3.6 mg/dL (2.5-4.9); TOTAL PROTEIN, SERUM 6.5 g/dL (6.4-8.2)
[2023-03-16 15:20] VITALS: BP 106/51; TEMP 98.2; O2SAT 100
[2023-03-16] MEDS ORDERED: FLEET ENEMA 133 ML BOTTLE RC PRN (16:00)
[2023-03-16] MEDS ORDERED: BISACODYL 10 MG SUPP.RECT RC PRN (16:00)
[2023-03-16] MEDS ORDERED: ACETAMINOPHEN 325 MG TABLET-SA PATIENTS-PAIN ONLY PO PRN (16:00)
[2023-03-16 16:45] LABS: AMMONIA < 10 umol/L (11-32); THYROID STIMULATING HORMONE 0.131 mIU/mL (0.358-3.740)
[2023-03-16] MEDS ORDERED: ACIDOPHILUS/BULGARICUS CHEW TAB PO SCH (17:00)
[2023-03-16] MEDS ORDERED: PROTEIN SUPPLEMENT (PROSTAT) 30 ML LIQUID PO SCH (17:00)
[2023-03-16] MEDS ORDERED: Medication Not On Formulary EA (Argin/Glut/Cahmb/Collag/Mv-Min (Juven Packet) 1 EACH) PO SCH (17:00)
[2023-03-16] MEDS ORDERED: ARGININE/GLUTAMINE/CALCIUM BMB 1 EACH POWD.PACK PO SCH (17:00)
[2023-03-16] MEDS ORDERED: Medication Not On Formulary EA (Amino Acids/Protein Hydrolys (Pro-Stat Sugar Free Liquid PO SCH (17:00)
[2023-03-16] MEDS: CEFEPIME HCL 2 G in IV DEXTROSE 5% 100 ML IV SCH (17:07)
[2023-03-16 20:24] VITALS: BP 108/62; TEMP 98.6; O2SAT 96
[2023-03-16] MEDS ORDERED: SODIUM HYPOCHLORITE 0.125% (QUARTER STRENGTH) 473 ML BOTTLE TP SCH (21:00)
[2023-03-16] MEDS ORDERED: LINEZOLID IV 600 MG in PREMIXED 1 EACH IV SCH (21:00)
[2023-03-16] MEDS ORDERED: VANCOMYCIN IV 500 MG in IV DEXTROSE 5% 100 ML IV SCH (21:00)
[2023-03-16] MEDS ORDERED: GENTAMICIN SULFATE 0.1% CREAM 15 GM TUBE TP SCH (21:00)
[2023-03-17 05:24] VITALS: BP 139/73; TEMP 98; O2SAT 98
[2023-03-17] MEDS: CEFEPIME HCL 2 G in IV DEXTROSE 5% 100 ML IV SCH (05:38)
[2023-03-17] MEDS ORDERED: PANTOPRAZOLE SODIUM 40 MG TABLET.DR PO SCH (07:00)
[2023-03-17 07:24] LABS: BASOPHILS # (AUTO) 0.1 K/UL (0.0-0.2); BASOPHILS % (AUTO) 0.8 % (0.0-2.0); EOSINOPHILS # (AUTO) 0.4 K/uL (0.0-0.7); EOSINOPHILS % (AUTO) 3.6 % (0.0-7.0); HEMATOCRIT 29.3 % (31.2-41.9); HEMOGLOBIN 9.8 g/dL (10.9-14.3); LYMPHOCYTES # (AUTO) 1.5 K/uL (0.8-4.8); LYMPHOCYTES % (AUTO) 14.9 % (20.5-51.5); MEAN CORPUSCULAR HEMOGLOBIN 31.4 uug (24.7-32.8); MEAN CORPUSCULAR HGB CONC 33 g/dL (32.3-35.6); MEAN CORPUSCULAR VOLUME 94.2 fL (75.5-95.3); MONOCYTES # (AUTO) 1.2 K/uL (0.1-1.30); MONOCYTES % (AUTO) 11.4 % (0.0-11.0); NEUTROPHILS # (AUTO) 7.1 K/uL (1.8-8.9); NEUTROPHILS % (AUTO) 69.3 % (38.5-71.5); PLATELET COUNT (AUTO) 371 K/uL (179-408); RED BLOOD CELL COUNT(AUTO) 3.11 MIL/uL (3.63-4.92); RED CELL DISTRIBUTION WIDTH 15.3 % (12.3-17.7); WHITE BLOOD COUNT (AUTO) 10.3 K/uL (3.8-11.8)
[2023-03-17 07:29] LABS: DIFFERENTIAL COMMENT 1
[2023-03-17 08:31] LABS: CALCIUM 11.8 mg/dL (8.5-10.1); CARBON DIOXIDE 25 mmol/L (21-32); CHLORIDE 107 mmol/L (98-107); CHOLESTEROL 178 mg/dL (<200); CREATININE 0.8 mg/dL (0.6-1.3); GLUCOSE 100 mg/dL (74-106); HDL CHOLESTEROL 42 mg/dL (40-60); PHOSPHOROUS 3.7 mg/dL (2.5-4.9); POTASSIUM 3.7 mmol/L (3.5-5.1); SODIUM SERUM 140 mmol/L (136-145); TRIGLYCERIDES 180 MG/DL (30-150); UREA NITROGEN, BLOOD 28 mg/dL (7-18)
[2023-03-17] MEDS ORDERED: ZINC SULFATE 220 MG CAPSULE PO SCH (09:00)
[2023-03-17] MEDS ORDERED: Medication Not On Formulary EA (Multivitamin (Multi Vitamin Daily) 1 EACH) PO SCH (09:00)
[2023-03-17] MEDS ORDERED: MULTIVITAMINS,THERAPEUTIC TABLET PO SCH (09:00)
[2023-03-17] MEDS ORDERED: ASCORBIC ACID 500 MG TABLET PO SCH (09:00)
[2023-03-17] MEDS ORDERED: OLANZAPINE 10 MG VIAL IM PRN (10:15)
[2023-03-17] MEDS: ACETAMINOPHEN 325 MG TABLET PO PRN (10:39)
[2023-03-17] MEDS ORDERED: LIDOCAINE 1%-EPI 1:100,000 20 ML VIAL IJ ONE (11:00)
[2023-03-17 11:06] VITALS: BP 149/78; TEMP 97.7; O2SAT 98
[2023-03-17 12:41] LABS: FREE T4 (FREE THYROXINE) 1.15 ng/dL (0.76-1.46)
[2023-03-17] MEDS ORDERED: LIDOCAINE 1%-EPI 1:100,000 20 ML VIAL ONE (12:55)
[2023-03-17] MEDS ORDERED: NEOMY/BACITRAC/POLYMI OINT 28.35 GM TUBE TOP SCH ×2 (14:30→15:15)
[2023-03-17 15:25] VITALS: BP 116/77; TEMP 98.2; O2SAT 100
[2023-03-17] MEDS: MORPHINE SULFATE PF IV DRIP 100 MG in IV DEXTROSE 5% 96 ML IV PRN (17:56)
[2023-03-18] MEDS: MORPHINE SULFATE PF IV DRIP 100 MG in IV DEXTROSE 5% 96 ML IV PRN ×3 (08:48→21:51)
[2023-03-18 18:20] VITALS: BP 69/29
[2023-03-19] MEDS: MORPHINE SULFATE PF IV DRIP 100 MG in IV DEXTROSE 5% 96 ML IV PRN ×3 (04:43)
[2023-03-19] MEDS ORDERED: MORPHINE SULFATE PF IV DRIP 100 MG in IV DEXTROSE 5% 96 ML IV PRN (07:15)
[2023-03-19] MEDS ORDERED: MORPHINE SULFATE PF IV DRIP 500 MG in IV DEXTROSE 5% 230 ML IV PRN (09:45)
== END 2023-03-19 10:15 | DRG 871 ==
LOC: ER 19:34 → MEDSURG3 03-16 00:47
PROVIDERS: ADMIT Nurse Practitioner Acute Care; ATTEND Internal Medicine
PROC: 0HQ1XZZ Repair Face Skin, External Approach (ICD-10-PCS; principal; 2023-03-17)
DX: A41.9 Sepsis, unspecified organism (principal); G92.8 Other toxic encephalopathy; D68.59 Other primary thrombophilia; C64.2 Malignant neoplasm of left kidney, except renal pelvis; C64.1 Malignant neoplasm of right kidney, except renal pelvis; E44.0 Moderate protein-calorie malnutrition; I50.40 Unspecified combined systolic (congestive) and diastolic (congestive) heart failure; C78.01 Secondary malignant neoplasm of right lung; C79.51 Secondary malignant neoplasm of bone; L03.115 Cellulitis of right lower limb; Z66 Do not resuscitate; Z51.5 Encounter for palliative care; M06.9 Rheumatoid arthritis, unspecified; Z85.3 Personal history of malignant neoplasm of breast; S01.81XA Laceration without foreign body of other part of head, initial encounter; W06.XXXA Fall from bed, initial encounter; Y92.230 Patient room in hospital as the place of occurrence of the external cause; Z74.09 Other reduced mobility; I44.7 Left bundle-branch block, unspecified; Z68.20 Body mass index [BMI] 20.0-20.9, adult; L40.50 Arthropathic psoriasis, unspecified; Z88.2 Allergy status to sulfonamides; Z87.891 Personal history of nicotine dependence; Z85.828 Personal history of other malignant neoplasm of skin; E04.2 Nontoxic multinodular goiter; D53.9 Nutritional anemia, unspecified; E78.5 Hyperlipidemia, unspecified; E83.52 Hypercalcemia; I11.0 Hypertensive heart disease with heart failure; K57.30 Diverticulosis of large intestine without perforation or abscess without bleeding; K80.20 Calculus of gallbladder without cholecystitis without obstruction
CPT/HCPCS: 36415; 70450; 71045; 71260; 73590; 73700; 83605; 83735; 84100; 84443; 84484; 85025; 85651; 87040; 93005; G0378; J0692; J0696; J2020; J2274; J2358; J3370; J3490; J3590; Q9967